=== PATIENT | male | born 1995 | race Caucasian/White ===

== ENCOUNTER 2017-11-22 02:07 | Emergency (ER) | payer OTHER ==
[2017-11-22] MEDS ORDERED: Lidocaine 1% w Epi 1:100,000 Inj ONE (02:45)
[2017-11-22] MEDS ORDERED: Lidocaine/Epi 1% 1:100000 20 ML IJ ONE (03:20)
--- NOTE | 2017-11-22 03:24 | ED PDOC ---
HPI: Head Injury Time Seen by Provider: 11/22/17 02:13 Chief Complaint (Nursing): Trauma History Per: Patient, Family History/Exam Limitations: intoxication Onset/Duration Of Symptoms: Hrs Additional History Per: Patient Additional Complaint(s): Patient arrives via EMS for fall, intox, patient does not remember event but thinks he fell 10 stairs and landed on his head. Denies other injuries. Patient highly intoxicated at time of evaluation. Past Medical History Reviewed: Unable To Obtain Vital Signs: Last Vital Signs Temp 98.1 F 11/22/17 02:18 Pulse 95 H 11/22/17 02:18 Resp 16 11/22/17 02:18 BP 130/76 11/22/17 02:18 Pulse Ox 98 11/22/17 02:18 - Family History Family History: States: Unknown Family Hx - Allergies Allergies/Adverse Reactions: Allergies Allergy/AdvReac Type Severity Reaction Status Date / Time No Known Allergies Allergy Verified 11/22/17 02:21 Review of Systems Review Of Systems: ROS cannot be obtained secondary to pt's inabilty to answer questions. Physical Exam - Reviewed Nursing Documentation Reviewed: Yes Vital Signs Reviewed: Yes - Physical Exam Appears: Positive for: Well, Non-toxic, No Acute Distress Head Exam: Negative for: ATRAUMATIC (2cm laceration to R eyebrow) Skin: Positive for: Normal Color, Warm, DRY Eye Exam: Positive for: EOMI, Normal appearance, PERRL ENT: Positive for: Normal ENT Inspection Neck: Positive for: Normal, Painless ROM, Supple Cardiovascular/Chest: Positive for: Regular Rate, Rhythm Respiratory: Positive for: CNT, Normal Breath Sounds Gastrointestinal/Abdominal: Positive for: Normal Exam, Soft. Negative for: Tenderness Back: Positive for: Normal Inspection Extremity: Positive for: Normal ROM. 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 Negative for: Oriented (Intoxicated) - ECG O2 Sat by Pulse Oximetry: 98 Pulse Ox Interpretation: Normal Medical Decision Making Medical Decision MakinAM A/P: Pt. arrives to eR for eval for head injury and intox -patient requiring stitches, will need imaging -during repair, patient became agitated, uncooperative, patient was very close to injuring this provider during the laceration repair because he refused to lay still, patient then jumped out of the bed and attempted to elope the ER. Attempted MULTIPLE times at verbal de-escalation, tried to re-direct patient, diversional activity provided via friend but patient's agitation only increased , requiring chemical and physical restraints for the protection of himself, the staff, and to obtain imaging 6:45AM CT CERVICAL SPINE WITHOUT IV CONTRAST FINDINGS: VERTEBRAE: No acute cervical spine fractures visualized. No evidence of significant vertebral subluxation. No evidence of acute facet dislocation. DISCS/SPINAL CANAL/NEURAL FORAMINA: Intervertebral disc heights are preserved. No evidence of bony spinal canal stenosis. SOFT TISSUES: No acute abnormality of the visualized soft tissues is seen. LUNG APICES: No pneumothorax seen. IMPRESSION: - No acute cervical spine fractures identified. - See above for remaining findings. CT HEAD WITHOUT IV CONTRAST FINDINGS: BRAIN: No significant acute abnormality identified. No acute hemorrhage seen within the brain. No acute extra-axial fluid collections visualized. No evidence of significant mass effect within the brain. VENTRICLES: No evidence of significant hydrocephalus. BONES/JOINTS: No acute fractures or other acute bony abnormality noted. SOFT TISSUES: No acute abnormality of the visualized soft tissues is seen. SINUSES: Visualized paranasal sinuses appear clear. MASTOID AIR CELLS: Mastoid air cells appear clear. IMPRESSION: - No evidence of acute intracranial injury or fractures. - See above for remaining findings. 7AM Patient signed out to Dr. Dillon pending reevaluation. Scribe Attestation: Documented by Eric De Luna, acting as a scribe for Mignon Feldman MD. Provider Scribe Attestation: All medical record entries made by the Scribe were at my direction and personally dictated by me. I have reviewed the chart and agree that the record accurately reflects my personal performance of the history, physical exam, medical decision making, and the department course for this patient. I have also personally directed, reviewed, and agree with the discharge instructions and disposition. Procedures - Laceration/Wound Repair Left Head Wound Length (cm): 2 Wound's Depth, Shape: superficial, linear Wound Explored: clean Irrigated w/ Saline (ccs): 50 Anesthesia: 1% Lidocaine, 0.5% Sensorcaine Wound Debrided: minimal Wound Repaired With: Sutures Suture Size/Type: 5:0 Number of Sutures: 3 Wound Complexity: Simple Disposition - Clinical Impression Clinical Impression: Alcohol intoxication, Head injury - Patient ED Disposition Is Patient to be Admitted: Transfer of Care - Disposition Disposition: Transfer of Care Disposition Time: 07:00 Condition: STABLE Forms: [facility] (Czech) Patient Signed Over To: Neri Dillon Handoff Comments: pending reevaluation
--- NOTE | 2017-11-22 06:38 | CT ---
EXAM: CT Head Without Intravenous Contrast EXAM DATE/TIME: 11/22/2017 3:19 AM CLINICAL HISTORY: 22 years old, male; Injury or trauma; Fall; Initial encounter; Blunt trauma (contusions or hematomas); Additional info: Intox, head injury TECHNIQUE: Axial computed tomography images of the head/brain without intravenous contrast. All CT scans at this facility use one or more dose reduction techniques, viz.: automated exposure control; ma/kV adjustment per patient size (including targeted exams where dose is matched to indication; i.e. head); or iterative reconstruction technique. Coronal and sagittal reformatted images were created and reviewed. COMPARISON: No relevant prior studies available. FINDINGS: BRAIN: No significant acute abnormality identified. No acute hemorrhage seen within the brain. No acute extra-axial fluid collections visualized. No evidence of significant mass effect within the brain. VENTRICLES: No evidence of significant hydrocephalus. BONES/JOINTS: No acute fractures or other acute bony abnormality noted. SOFT TISSUES: No acute abnormality of the visualized soft tissues is seen. SINUSES: Visualized paranasal sinuses appear clear. MASTOID AIR CELLS: Mastoid air cells appear clear. IMPRESSION: - No evidence of acute intracranial injury or fractures. - See above for remaining findings.
--- NOTE | 2017-11-22 06:46 | CT ---
EXAM: CT Cervical Spine Without Intravenous Contrast EXAM DATE/TIME: 11/22/2017 3:19 AM CLINICAL HISTORY: 22 years old, male; Injury or trauma; Fall; Initial encounter; Blunt trauma; Additional info: Head injury, intox TECHNIQUE: Axial computed tomography images of the cervical spine without intravenous contrast. All CT scans at this facility use one or more dose reduction techniques, viz.: automated exposure control; ma/kV adjustment per patient size (including targeted exams where dose is matched to indication; i.e. head); or iterative reconstruction technique. Coronal and sagittal reformatted images were created and reviewed. COMPARISON: No relevant prior studies available. FINDINGS: VERTEBRAE: No acute cervical spine fractures visualized. No evidence of significant vertebral subluxation. No evidence of acute facet dislocation. DISCS/SPINAL CANAL/NEURAL FORAMINA: Intervertebral disc heights are preserved. No evidence of bony spinal canal stenosis. SOFT TISSUES: No acute abnormality of the visualized soft tissues is seen. LUNG APICES: No pneumothorax seen. IMPRESSION: - No acute cervical spine fractures identified. - See above for remaining findings.
--- NOTE | 2017-11-22 07:05 | ED PDOC ---
- ECG O2 Sat by Pulse Oximetry: 98 - Progress Re-evaluation Time: 10:23 Condition: Improved (Awake alert no focal neuro deficits) Medical Decision Making Medical Decision Makin:00 Patient endorsed to me by Dr. Feldman pending reevaluation. Scribe Attestation: Documented by Eric De Luna, acting as a scribe for Christopher Feldman MD. Provider Scribe Attestation: All medical record entries made by the Scribe were at my direction and personally dictated by me. I have reviewed the chart and agree that the record accurately reflects my personal performance of the history, physical exam, medical decision making, and the department course for this patient. I have also personally directed, reviewed, and agree with the discharge instructions and disposition. Disposition - Clinical Impression Clinical Impression: Alcohol intoxication, Head injury, Laceration - POA Present On Arrival: None - Disposition Referrals: [facility] [Outside] Disposition: Routine/Home Disposition Time: 10:23 Condition: FAIR Instructions: Closed Head Injury (DC), Alcohol Abuse and Alcoholism (DC), Laceration Repair Forms: [facility] (Bruneian)
[2017-11-22 10:24] VITALS: O2SAT 98
[2017-11-22 11:16] VITALS: BP 116/68; PULSE 78; RESP 19; TEMP 98.4
== END 2017-11-22 10:30 | disposition home or self-care (01) ==
LOC: H.ER 02:07
DX: S09.90XA Unspecified injury of head, initial encounter (principal); S01.01XA Laceration without foreign body of scalp, initial encounter; F10.129 Alcohol abuse with intoxication, unspecified
CPT/HCPCS: 12001; 70450; 72125; 80320; 96372; 99285; J1630; J2060